=== PATIENT | male | born 1975 | race Native Hawaiian/Other Pacific Islander ===

== ENCOUNTER 2016-09-18 15:43 | Emergency (ER) | payer OTHER ==
[~2016-09-18] VITALS: Ht 170.2 cm; Wt 53.0 kg
[~2016-09-18 15:43] MED LIST: IBUP-232 PO; Z.0.NO CURRENT MEDS
[2016-09-18 15:48] VITALS: BP 166/93; PULSE 79; RESP 16; TEMP 98.7; O2SAT 99
[2016-09-18] MEDS ORDERED: AMOX875T PO (15:54)
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
[2016-09-18] MEDS ORDERED: TETANUS/DIPHTHERIA TOXOID ADULT 0.5 ML VIAL IM ONE (16:15)
[2016-09-18] MEDS ORDERED: NON-500T13 PO (16:41)
[2016-09-18] MEDS ORDERED: IBUP-232 PO (16:41)
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
== END 2016-09-18 17:00 | disposition home or self-care (01) ==
LOC: PHEFT 15:43
DX: S60.221A Contusion of right hand, initial encounter (principal); S83.91XA Sprain of unspecified site of right knee, initial encounter; Y92.410 Unspecified street and highway as the place of occurrence of the external cause; V28.4XXA Motorcycle driver injured in noncollision transport accident in traffic accident, initial encounter; T14.8 Other injury of unspecified body region; F17.210 Nicotine dependence, cigarettes, uncomplicated; Z23 Encounter for immunization
CPT/HCPCS: 73130; 73564; 90471; 90714